=== PATIENT | female | born 2000 | race African-American/Black ===

== ENCOUNTER 2023-03-23 09:54 | Outpatient (CLI) | payer MEDICAID, SELFPAY | END 2023-03-23 09:55 | disposition home or self-care (01) | PROVIDERS: Visit Provider Emergency Medicine Emergency Medical Services | DX: O09.899 Supervision of other high risk pregnancies, unspecified trimester (principal); F11.10 Opioid abuse, uncomplicated | CPT/HCPCS: A0425; A0429 ==

== ENCOUNTER 2023-03-23 10:14 | Emergency (ER) | payer MEDICAID, SELFPAY ==
[2023-03-23] VITALS (16 sets, daily range): BP systolic 125–157; BP diastolic 82–112; PULSE 105–125; RESP 18–22; TEMP 37.6–38.3; O2SAT 89–98; BMI 26.3
--- NOTE | 2023-03-23 11:47 | ED.NURSE ---
at 1130, pt c/o of SOB, 02 sats 92-93% on room air. Educated pt reposition. Pt placed on 2L NC for comfort. is aware.
[2023-03-23 12:01] LABS: PCR FLU A POSITIVE PCR FLU A (Negative); PCR FLU B Negative PCR FLU B (Negative); PCR RSV Negative PCR RSV (Negative)
[2023-03-23 12:03] LABS: SARS PCR* Negative SARS-CoV-2 (Negative)
[2023-03-23 12:18] LABS: Appearance Urine Cloudy (Clear); Bilirubin Urine Negative (Negative); Blood Urine Negative (Negative); Color Urine Yellow (Yellow); Glucose Urine Negative (Negative); Ketones Urine Trace (Negative); Leukocyte Esterase Urine Negative (Negative); Nitrite Urine Negative (Negative); Protein Urine Negative (Negative); Specific Gravity Urine 1.015 (1.000-1.030)
[2023-03-23 12:20] LABS: Lactate* 1.6 mmol/L (0.5-1.9)
[2023-03-23 12:25] LABS: Basophils Absolute Auto 0.01 K/uL (0.00-0.30); Basophils Percent Auto 0.1 % (0.0-3.0); Hematocrit 36.8 % (33.0-51.0); Hemoglobin* 11.8 gm/dL (12.0-16.0); Immature Granulocytes Abs Auto 0.01 K/uL (0.00-0.30); Immature Granulocytes Pct Auto 0.1 %; Lymphocytes Percent Auto 7.7 % (20-44); Mean Corpuscular HGB Conc 32 gm/dL (32-36); Mean Corpuscular Hemoglobin 29 pg (26-34); Mean Corpuscular Volume 91 fL (80-100); Neutrophils Percent Auto 87.1 % (42.0-72.0); Platelet Count* 343 K/uL (140-440); RDW Coefficient of Variation % 11.9 % (11.5-15.5); Red Blood Count 4.03 m/uL (4.00-5.20); White Blood Count* 10.02 K/uL (4.50-11.00)
[2023-03-23 12:29] LABS: Slide Review Reflex No
[2023-03-23 12:31] LABS: RBC Urine 0-2 (0-2)
[2023-03-23 12:32] LABS: Bacteria Urine Many; Squamous Epithelial Cell Urine Moderate (None-Few)
[2023-03-23 12:36] LABS: Albumin* 3.7 g/dL (3.3-5.0); Chloride* 104 mmol/L (96-114)
[2023-03-23 12:37] LABS: Potassium* 3.5 mmol/L (3.6-5.1); Sodium* 133 mmol/L (135-149)
[2023-03-23 12:39] LABS: Creatinine* 0.4 mg/dL (0.5-1.5); Est. Creatinine Clearance* 201.88; Estimated Glomerular Filt Rate 142 ml/min
[2023-03-23 12:40] LABS: Alanine Aminotransferase* 19 U/L (4-35); Alkaline Phosphatase* 161 U/L (40-150); Anion Gap 9 mEq/L (7-15); Aspartate Amino Transferase* 23 U/L (12-35); Bilirubin Direct* 0.1 mg/dL (0.0-0.5); Bilirubin Total* 0.4 mg/dL (0.1-1.5); Blood Urea Nitrogen* 4 mg/dL (5-24); Calcium* 8.5 mg/dL (8.4-10.6); Carbon Dioxide* 20 mmol/L (20-32); Glucose* 113 mg/dL (60-115)
[2023-03-23 12:42] LABS: C Reactive Protein* 5.6 mg/dL (0.5-1.0); Ethanol* < 0.01 % (0.01-0.03)
--- NOTE | 2023-03-23 12:47 | ED.GENADULT ---
HPI - General Adult General Chief complaint: Alcohol/Intoxication Stated complaint: Mental Health Time Seen by Provider: 03/23/23 10:33 History of Present Illness HPI narrative: This 22-year-old female is brought in by police and the [facility] social worker aide who state that she is in her 3rd trimester and is addicted to fentanyl, methamphetamines, and marijuana. The patient is not wanting to be here and yet is cooperative and pleasant. She is approximately 32 weeks gestation. She arrives here with mild tachycardia and does have a fever. She does report a cough and she is indicating some pain in her lower abdomen. Related Data Home Medications Medication Instructions Recorded Confirmed No Known Home Medications 03/23/23 03/23/23 Allergies Allergy/AdvReac Type Severity Reaction Status Date / Time No Known Drug Allergies Allergy Verified 03/23/23 10:50 Review of Systems Status of ROS: Reports: 10 or more systems reviewed and unremarkable except as noted in History and below Narrative: Constitutional: No weight gain or loss. Eyes: No discharge. No vision changes. HENT: No congestion, no sore throat, no ear pain. Cardiovascular: No chest pain, no palpitations. Respiratory: No shortness of breath, no wheezes, no cough. Gastrointestinal: No vomiting, no diarrhea. Thirty-three weeks with lower abdominal pain. Genitourinary: No dysuria, no hematuria. Musculoskeletal: Normal range of motion. Skin: No rashes, no pruritis. Neurological: No dizziness, weakness, sensory change, speech change. Endo/Heme/Allergies: No bruising or bleeding. No polydipsia. Pysch: no suicidality. Dependence on opiates and methamphetamines. All other systems reviewed and are negative. [facility] Social History Do you use any of these nicotine containing products: E-Cigarettes Exam Narrative: Exam Narrative: Constitutional: Well-developed, well-nourished, no acute distress. HEENT: Normocephalic, atraumatic. Neck: Normal range of motion. Nontender. Supple. Heart: Regular. No murmurs. Normal rate. Intact distal pulses. Lungs: Clear to auscultation. No chest discomfort. No wheezes, rhonchi, or rales. Abdomen: Normal bowel sounds. Gravid at 33 weeks gestation. Lower abdominal tenderness. Genitalia: Deferred. Back: No midline tenderness. Normal range of motion. Extremities: Normal range of motion. No injury. Skin: Intact. No rash. Warm. No erythema or pallor. Neurologic: No altered sensation. No weakness. Alert and oriented. Psychiatric: No suicidality. Dependence on opiates and methamphetamines. Nursing notes and vitals signs are reviewed. Const: Vital Signs, click to edit/add: Vital Signs - 24 hr 03/23/23 10:38 03/23/23 11:25 03/23/23 11:28 Temperature 100.9 F H Pulse Rate 118 H Pulse Rate [Right Pulse Oximeter] 109 H Respiratory Rate 18 22 Blood Pressure [Ri ght Upper Arm] 125/82 Pulse Oximetry 92 91 93 Oxygen Delivery Me thod Room Air Room Air 03/23/23 11:30 03/23/23 11:49 03/23/23 12:11 Temperature 99.6 F Pulse Rate 112 H 105 H Pulse Rate [Right Pulse Oximeter] Respiratory Rate 20 Blood Pressure [Ri ght Upper Arm] Pulse Oximetry 95 98 Oxygen Delivery Me thod 03/23/23 12:15 Temperature Pulse Rate 109 H Pulse Rate [Right Pulse Oximeter] Respiratory Rate Blood Pressure [Ri ght Upper Arm] Pulse Oximetry 97 Oxygen Delivery Me thod Course Vital Signs Vital signs: Initial Vital Signs Temperature 100.9 F H 03/23/23 10:38 Temperature Source Temporal Artery Scan 03/23/23 10:38 Pulse Rate 109 H 03/23/23 10:38 Respiratory Rate 18 03/23/23 10:38 Blood Pressure 125/82 03/23/23 10:38 Blood Pressure Mean 96 03/23/23 10:38 Blood Pressure Position Sitting 03/23/23 10:38 Pulse Oximetry 92 03/23/23 10:38 Oxygen Delivery Method Room Air 03/23/23 10:38 Vital Signs Temperature 100.9 F H 03/23/23 10:38 Pulse Rate 109 H 03/23/23 10:38 Respiratory Rate 18 03/23/23 10:38 Blood Pressure 125/82 03/23/23 10:38 Pulse Oximetry 92 03/23/23 10:38 Oxygen Delivery Method Room Air 03/23/23 10:38 Temperature 99.6 F 03/23/23 11:49 Pulse Rate 109 H 03/23/23 12:15 Respiratory Rate 20 03/23/23 11:49 Blood Pressure 125/82 03/23/23 10:38 Pulse Oximetry 97 03/23/23 12:15 Oxygen Delivery Method Room Air 03/23/23 11:28 Medical Decision Making MDM Narrative Medical decision making narrative: This patient comes in by escort from police and social worker aide from the [facility] stating that she is in the process of being committed because of opiate and methamphetamine use during her . The patient is pleasant and cooperative but prefers not to be here when and would rather be discharged. This patient needs services that are not available here so I began to arrange for transport elsewhere. I did speak with [facility] who agrees to her transfer there. Dr. Barber is the accepting physician there. Meanwhile she does arrive with a fever so labs are acquired. A nasal pharyngeal swab does return positive for influenza. The patient was assessed by me with transabdominal ultrasound showing normal activity and heart rate. Additionally the OB department came here to evaluate the patient. There was some suspicion that the patient may be in labor but was determined by Dr. Rivas to not be in labor and is okay for transport. The patient became very anxious and short of breath and did respond to oxygen. She was likely exhibiting signs of withdrawal from opiates. She did eventually agree to placing another IV as the 1st attempt was unsuccessful. She agree to an IV dose of an opiate to help with her withdrawal symptoms. Dilaudid 0.5 mg was given. Respiratory therapy came also to evaluate the patient and after giving oxygen by non-rebreather mask the patient seemed to be improved and did not need nebulizer or steroid treatments. This patient is okay for transport. Lab Data Labs: Lab Results 03/23/23 03/23/23 03/23/23 Range/Units 11:05 12:05 12:10 WBC 10.02 (4.50-11.00) K/uL RBC 4.03 (4.00-5.20) m/uL Hgb 11.8 L (12.0-16.0) gm/dL Hct 36.8 (33.0-51.0) % MCV 91 (80-100) fL MCH 29 (26-34) pg MCHC 32 (32-36) gm/dL RDW Coeff of Elijah 11.9 (11.5-15.5) % Plt Count 343 (140-440) K/uL Neut % (Auto) 87.1 H (42.0-72.0) % Lymph % (Auto) 7.7 L (20-44) % [place] % (Auto) 5.0 (0.0-11.0) % Eos % (Auto) 0.0 (0.0-7.0) % Baso % (Auto) 0.1 (0.0-3.0) % Neut # (Auto) 8.70 H (1.7-7.0) K/uL Lymph # (Auto) 0.80 L (0.90-2.90) K/uL [place] # (Auto) 0.50 (0.00-0.90) K/UL Eos # (Auto) 0.00 (0.00-0.50) K/uL Baso # (Auto) 0.01 (0.00-0.30) K/uL Abs Immat Gran (auto) 0.01 (0.00-0.30) K/uL Imm/Tot Granulo (auto) 0.1 % Sodium 133 L (135-149) mmol/L Potassium 3.5 L (3.6-5.1) mmol/L Chloride 104 (96-114) mmol/L Carbon Dioxide 20 (20-32) mmol/L Anion Gap 9 (7-15) mEq/L BUN 4 L (5-24) mg/dL Creatinine 0.4 L (0.5-1.5) mg/dL Estimated Creat Clear 201.88 Estimated GFR 142 ml/min Glucose 113 (60-115) mg/dL Lactate 1.6 (0.5-1.9) mmol/L Calcium 8.5 (8.4-10.6) mg/dL Total Bilirubin 0.4 (0.1-1.5) mg/dL Direct Bilirubin 0.1 (0.0-0.5) mg/dL AST 23 (12-35) U/L ALT 19 (4-35) U/L Alkaline Phosphatase 161 H (40-150) U/L Total Protein 7.0 (6.0-8.3) g/dL Albumin 3.7 (3.3-5.0) g/dL Urine Color Yellow (Yellow) Urine Appearance Cloudy A (Clear) Urine pH 7.0 (5.0-8.5) Ur Specific [place] 1.015 (1.000-1.030) Urine Protein Negative (Negative) Urine Glucose (UA) Negative (Negative) Urine Ketones Trace A (Negative) Urine Blood Negative (Negative) Urine Nitrite Negative (Negative) Urine Bilirubin Negative (Negative) Urine Urobilinogen 1.0 (0.2-1.0) Ur Leukocyte Esterase Negative (Negative) Urine RBC 0-2 (0-2) Urine WBC 2-5 (0-5) Ur Squamous Epith Cells Moderate A (None-Few) Urine Bacteria Many A (None) Ethyl Alcohol < 0.01 L (0.01-0.03) % SARS-CoV-2 (PCR) Negative SARS-CoV-2 (Negative) Influenza Type A (PCR) POSITIVE PCR FLU A A (Negative) Influenza Type B (PCR) Negative PCR FLU B (Negative) RSV (PCR) Negative PCR RSV (Negative) Critical Care Time Critical Care Time Total Critical Care Time in Minutes: 45 Discharge Plan Discharge Clinical Impression: Opiate dependence, , Methamphetamine abuse, Influenza Patient Disposition: [facility] Condition: Unchanged Prescriptions: No Action No Known Home Medications Stand Alone Forms: MyHealth Info Instructions
--- NOTE | 2023-03-23 12:50 | ED.NURSE ---
Patient and significant other, Lm, were read 72-hour hold rights at 1100.
--- NOTE | 2023-03-23 13:27 | ED.NURSE ---
Pt c/o of intermittent abdominal pain- MD aware. No new orders placed. Bedside ultrasound completed by MD at bedside. Pt c/o of SOB at 1315- Currently has 2L NC in place and oxygen saturations adequate see flowsheets.ER and OB MD at bedside at 1330 to assess pt.
--- NOTE | 2023-03-23 13:28 | RESP.RT ---
Pt placed on oxymask at 6L, to maintain an SPO2 of 95%.
[2023-03-23] MEDS: HYDROmorphone 0.5 mg/0.5 ml inj IVP (13:52)
--- NOTE | 2023-03-23 13:55 | ED.NURSE ---
. Patent 20g IV inserted in right AC. x1 dose IVP of Dilaudid given for abdominal pain per pt report. EMS here to take pt to [place] at 1400. EMS given report
--- NOTE | 2023-03-23 14:05 | ED.NURSE ---
EMS given x1 bag of belongings (jacket, pants and shoes). Pt has phone 2 with her as well.
--- NOTE | 2023-03-23 14:11 | ED.NURSE ---
Pt received 1/3 of IV bolus of NS prior to left 22g placed by OB- infiltrated at 1300. After pt refused IV insertion and refused intervetions 1355 pt allowed ED RN to place right 20g in AC
--- NOTE | 2023-03-23 14:31 | ED.NURSE ---
development writer gave report to mg cristobal at [place]
--- NOTE | 2023-03-23 15:39 | PC.OBNST ---
NST Note NST Note Start: 03/23/23 15:34 Freq: ONCE Status: Active Protocol: Document 03/23/23 15:35 JRJolene (Rec: 03/23/23 15:39 JRJolene [id number]) NST Note 2 Para (# of births) 1 EDC 05/11/23 Gestational Age In Weeks & Days 33 Weeks & 0 Days Patient Presented with Complaint(s) of Other Other Complaints Pt on a hold in the ED for drug use. Transferred to [facility]. Dr. Raman reviewed the strip. Reactive No Appropriate for Gestational Age No RAMON Johnson RN Date 03/23/23 Reactive No Appropriate for Gestational Age No RAMON Robison RN Date 03/23/23 OB NST charge Yes Complete NST Note via Write Note Yes The provider's electronic signature indicates the NST is reactive/appropriate for gestational age. *Note to provider: If an addendum is required, open the patient's chart and click on the note under the Nurse/Allied Health tab.
--- NOTE | 2023-03-23 19:21 | ED.NURSE ---
Pt took x3 attempts to get IV placed. OB RN did attempt x1 as well. Pt left with patent iv right 20g
== END 2023-03-23 14:00 | disposition short-term general hospital (02) ==
PROVIDERS: Emergency Provider Emergency Medicine Emergency Medical Services
DX: O99.323 Drug use complicating pregnancy, third trimester (principal); J11.1 Influenza due to unidentified influenza virus with other respiratory manifestations; F11.20 Opioid dependence, uncomplicated; F15.90 Other stimulant use, unspecified, uncomplicated; Z3A.32 32 weeks gestation of pregnancy
CPT/HCPCS: 36415; 59025; 76815; 80048; 80076; 81001; 82077; 83605; 85025; 86140; 87040; 87086; 87631; 96374; 99285; 99291; A9270; J1170

== ENCOUNTER 2023-03-23 13:45 | Outpatient (CLI) | payer MEDICAID, SELFPAY | END 2023-03-23 13:46 | disposition home or self-care (01) | PROVIDERS: Visit Provider Emergency Medicine Emergency Medical Services | DX: O26.893 Other specified pregnancy related conditions, third trimester (principal); F11.20 Opioid dependence, uncomplicated; Z3A.33 33 weeks gestation of pregnancy | CPT/HCPCS: A0425; A0428 ==

== ENCOUNTER 2024-07-13 15:41 | Outpatient (CLI) | payer MEDICAID, SELFPAY | END 2024-07-13 15:42 | disposition home or self-care (01) | PROVIDERS: Visit Provider Obstetrics & Gynecology | DX: O99.013 Anemia complicating pregnancy, third trimester (principal); D64.9 Anemia, unspecified; Z3A.31 31 weeks gestation of pregnancy | CPT/HCPCS: 83021 ==

== ENCOUNTER 2024-07-19 08:19 | Outpatient (CLI) | payer MEDICAID, SELFPAY | END 2024-07-19 08:20 | disposition home or self-care (01) | LOC: NFLDREF 08:20 | PROVIDERS: Visit Provider Obstetrics & Gynecology | DX: Z34.93 Encounter for supervision of normal pregnancy, unspecified, third trimester (principal); Z3A.28 28 weeks gestation of pregnancy | CPT/HCPCS: 86592; 86706 ==

== ENCOUNTER 2024-08-14 12:26 | Outpatient (CLI) | payer BC, SELFPAY ==
[2024-08-15 09:05] LABS: Strep B DNA Probe Negative (Negative)
[2024-08-15 09:11] LABS: Strep B Susceptibility Needed? No
== END 2024-08-14 12:27 | disposition home or self-care (01) ==
LOC: NFLDREF 12:26
PROVIDERS: Visit Provider Obstetrics & Gynecology
DX: Z34.83 Encounter for supervision of other normal pregnancy, third trimester (principal)
CPT/HCPCS: 82728; 87081; 87653

== ENCOUNTER 2024-08-22 14:50 | Outpatient (CLI) | payer BC, SELFPAY ==
--- NOTE | 2024-08-22 14:45 | CRLHL7_ITS ---
For Patients: As a result of the Century Cures Act, medical imaging exams and procedure reports are released immediately into your electronic medical record. You may view this report before your referring provider. If you have questions, please contact your health care provider. GEOVANY by US: 09/14/2024. GA: 36w, 5d. Single. INDICATION: Drug use complicating . CERVIX: Not visualized. POSITIONING: Vertex. AMNIOTIC FLUID: 6.8 cm SDP. BIOPHYSICAL PROFILE: Total score: 6. Gross body movements: 2. tone: 2. Respiratory activity: 0. Amniotic fluid: 2. (SDP N: Increase 2 x 1 cm) PLACENTA: Technique: Transabdominal. PLACENTA POSITION: Fundal left wall. DOPPLER: heart rate: 139 bpm. Biometry: BPD: 8.6 cm. 34w, 4d, 11.3 percent. HC: 32.3 cm. 36w, 3d, 18.3 percent. AC: 32.8 cm. 36w, 5d, 62.9 percent. FL: 7.0 cm. 35w, 6d, 24.8 percent. FL/AC ratio: 21.28 percent. HC/AC ratio: 0.98. EFW: 2881 g. Weight: 6 lbs, 6 oz. age by this US: 35w, 6d. GEOVANY by this US: 09/20/2024. Percentile by GEOVANY: 41 percent. IMPRESSION: 1. Sonographic gestational age 35 weeks 6 days and sonographic due date 09/20/2024. Sonographic age is 6 days behind the clinical age. 2. Estimated weight 41st percentile. Abdominal circumference 63rd percentile. 3. Biophysical profile 09/17. Absent respiratory activity. Bryn Carpio M.D. Diagnostic Radiologist [email or web address] LUKAS/delma / bM/Dictated by: Bryn Carpio MD @ 08/22/2024 4:19:00 PM (Electronically Signed)
== END 2024-08-22 14:51 | disposition home or self-care (01) ==
LOC: US 14:50
PROVIDERS: Visit Provider Obstetrics & Gynecology
DX: O99.323 Drug use complicating pregnancy, third trimester (principal); F11.20 Opioid dependence, uncomplicated; O36.5930 Maternal care for other known or suspected poor fetal growth, third trimester, not applicable or unspecified; Z3A.36 36 weeks gestation of pregnancy
CPT/HCPCS: 76816; 76819

== ENCOUNTER 2024-08-24 09:29 | Outpatient (RCR) | payer BC, SELFPAY ==
--- NOTE | 2024-08-17 11:21 | ONC.NURNOTE ---
Diagnosis: BRAD in
[2024-08-24 09:38] VITALS: BP 115/76; PULSE 89; RESP 16; TEMP 36.3; O2SAT 95
[2024-08-24] MEDS: SODIUM CHLORIDE 0.9 % (FLUSH) 10 ML SYRINGE IVF (10:19)
[2024-08-24] MEDS: IRON DEXTRAN COMPLEX 25 MG in 0.9 % SODIUM CHLORIDE 100 ml 100 ML 402 MG IVPB (10:19)
[2024-08-24 10:41] VITALS: BP 110/69; PULSE 88; RESP 16; TEMP 36.4; O2SAT 97
[2024-08-24] MEDS: IRON DEXTRAN COMPLEX 975 MG in 0.9 % SODIUM CHLORIDE 250 ml 250 ML 270 MG IVPB (11:38)
[2024-08-24 12:43] VITALS: BP 111/67; PULSE 91; RESP 14; TEMP 36.4; O2SAT 96
== END 2025-02-20 23:59 | disposition home or self-care (01) ==
LOC: CCIC 09:29
PROVIDERS: Referring Provider Obstetrics & Gynecology; Visit Provider Clinical Nurse Specialist
DX: O99.013 Anemia complicating pregnancy, third trimester (principal); D50.9 Iron deficiency anemia, unspecified
CPT/HCPCS: 96365; J1750; J7050

== ENCOUNTER 2024-09-06 15:20 | Outpatient (CLI) | payer BC, SELFPAY | END 2024-09-06 15:21 | disposition home or self-care (01) | LOC: NFLDREF 09-12 07:34 | PROVIDERS: Visit Provider Obstetrics & Gynecology | DX: R30.0 Dysuria (principal); Z11.3 Encounter for screening for infections with a predominantly sexual mode of transmission | CPT/HCPCS: 87086; 87491; 87591 ==

== ENCOUNTER 2024-09-07 05:31 | Inpatient (IN) | payer BC, SELFPAY ==
[2024-09-07] VITALS (31 sets, daily range): BP systolic 97–137; BP diastolic 53–81; PULSE 66–85; RESP 16; TEMP 36.6–37.5; O2SAT 93–99; BMI 36.3
[2024-09-07 06:29] LABS: Basophils Absolute Auto 0.02 K/uL (0.00-0.30); Basophils Percent Auto 0.3 % (0.0-3.0); Eosinophils Absolute Auto 0.06 K/uL (0.00-0.50); Hematocrit 30.8 % (33.0-51.0); Hemoglobin* 9.7 gm/dL (12.0-16.0); Immature Granulocytes Abs Auto 0.02 K/uL (0.00-0.30); Immature Granulocytes Pct Auto 0.3 %; Lymphocytes Absolute Auto 1.38 K/uL (0.90-2.90); Lymphocytes Percent Auto 22.5 % (20-44); Mean Corpuscular HGB Conc 32 gm/dL (32-36); Mean Corpuscular Hemoglobin 29 pg (26-34); Mean Corpuscular Volume 93 fL (80-100); Monocytes Percent Auto 12.9 % (0.0-11.0); Neutrophils Absolute Auto 3.85 K/uL (1.7-7.0); Platelet Count* 288 K/uL (140-440); RDW Coefficient of Variation % 15.2 % (11.5-15.5); Red Blood Count 3.33 m/uL (4.00-5.20); White Blood Count* 6.12 K/uL (4.50-11.00)
[2024-09-07 06:35] LABS: Slide Review Reflex No
[2024-09-07] MEDS: LACTATED RINGERS 1000 ML 1,000 ML 1200 ML IV (06:39)
--- NOTE | 2024-09-07 07:18 | W.PM.H&PU ---
History & Physical Update History & Physical Update H&P Updates: Hgb today 9.7 after iron infusion x3. Will speak to Susana Prado to discuss plan for suboxone and postop pain management.
--- NOTE | 2024-09-07 07:20 | P.PCN_ITS ---
Procedure Note Time Seen by Provider: 09:00 Date Seen: 09/07/24 Date of procedure: 09/07/24 Will [facility] bill your pro fee for this procedure?: Yes Procedure: Preoperative diagnosis: 23-year-old 3 para 2003 (one set of twins) at 39 and 0/7 weeks admitted for a scheduled repeat low transverse section. Postoperative diagnosis: Same Procedure: Repeat low-transverse section. TAPS block. Anesthesia: Spinal Surgeon: Sarah Kimbrough MD Waterworks Operator: ANDRADE Art Quantitative blood loss: 697 mL IV Fluid: 2000 mL Urine output: 200 mL, clear urine at the end of the procedure Drain(s): Polanco to gravity. Specimen: A portion of umbilical cord was sent for toxicology testing. Findings: A live female was delivered from the direct OA position at 8:03 a.m.. Apgars were 8 at 1 min and 9 at 5 min, respectively. Infant weight: 7 lb 11 oz, 3480 g. Nuchal cord(s): No. The placenta was delivered spontaneously and complete at 8:06 a.m. Amniotic fluid: Clear. Normal uterus, fallopian tubes and ovaries were noted. Other findings: Thick adhesions of the rectus abdominus muscles in the midline and thick adhesions of the fascia to the rectus muscles. Minimal scarring intra-abdominally. Procedure: Yoselin was taken to the OR where spinal anesthetic was found be adequate. A Polanco catheter was placed. The patient was then placed in the dorsal supine position with a leftward tilt. She was then prepped and draped in a normal sterile manner. A Pfannenstiel skin incision was made and carried through sharply to the underlying layer of fascia. Fascia was incised in the midline a nd this incision carried laterally with Metzger scissors. The superior aspect of fascial incision was grasped with Merly clamps, tented up, and the rectus muscles dissected off with a combination of blunt and sharp dissection. The inferior aspect of the fascial incision was not dissected off the rectus muscles. There was a buttonhole in the fashion noted superiorly on the left side that was reapproximated using 0 Vicryl in a running manner: This opening was approximately 3 cm in length. The rectus muscles were in layers using Metzger scissors. The peritoneum was entered sharply when dissecting the fascia off of the rectus muscles. This opening was extended with a combination of blunt and sharp dissection. An Matt-O self-retaining retractor was placed. A bladder flap was not created. Uterus was incised in a low transverse manner in the midline. This incision carried laterally with blunt pressure on the inferior and superior aspects of the uterine incision. The amniotic sac was ruptured. The infant's head and body were delivered atraumatically. The was shown to the patient and her support person. The umbilical was clamped and cut after a 32nd delay.. The infant was then handed to waiting pediatric and nursing staff. The placenta was delivered spontaneously. The uterus was cleared of clots and debris. The uterine incision was re-approximated with the uterus in vivo. The 1st layer using 0-Vicryl in a running, locked manner. The 2nd layer using 0-Monocryl in a running, vertical, imbricating layer. Additional sutures needed for hemostasis: Yes: 3 sutures of 2-0 chromic figure of 8 manner were placed. The fallopian tubes and ovaries were inspected. Reji was applied to the uterine incision. Excellent hemostasis was confirmed. The Matt retractor was removed. The rectus muscles were reapproximated using 0 Vicryl vertical mattress sutures. The rectus muscles were then closely inspected to verify hemostasis. Hemostasis was obtained with bipolar cautery. The fascia was then reapproximated using 0- Maxon loop in a running manner. The subcutaneous tissue was then irrigated with saline and hemostasis obtained with bipolar cautery. The subcutaneous tissue was reapproximated using 3-0 plain gut interrupted sutures. The skin was reapproximated using 4-0 Monocryl in a running subcuticular manner. Exophin skin adhesive and a Mepiplex dressing were applied. The patient had significant difficulty with pain during the procedure. Anesthesia gave her fentanyl, ketamine and propofol which minimally to moderately controlled her discomfort. Sponge, lap and instrument counts were correct x2 active to the procedure. Patient was taken to the recovery area in stable condition. The patient received 2 g of IV Ancef prior to skin incision. Anesthesia: spinal Surgeon: Sarah Kimbrough MD Waterworks Operator: Amalia Cintron Estimated blood loss (mL): 697 IV fluids (mL): 2,000 Urine output (mL): 200 Pathology: other (umbilical cord for toxicology testing) Condition: stable Disposition: floor
[2024-09-07 07:27] LABS: Amphetamine Screen Urine Negative (Negative); Barbiturate Screen Urine Negative (Negative); Benzodiazepines Screen Urine Negative (Negative); Cannabinoid Screen Urine Negative (Negative); Cocaine Screen Urine Negative (Negative); Methadone Screen Urine Negative (Negative); Methamphetamines Screen Urine Negative (Negative); Opiate Screen Urine Negative (Negative); Oxycodone Screen Urine Negative (Negative); Phencyclidine Screen Urine Negative (Negative); Tricyclic Antidepressant Urine Negative (Negative)
[2024-09-07] MEDS: CEFAZOLIN 1 GM inj 2 GM IVP (07:32)
--- NOTE | 2024-09-07 08:14 | SUR.OPER ---
PATIENT QUESTIONS ANSWERED SATISFACTORILY PREOPERATIVELY. PATIENT BROUGHT TO OR #4 PER AMBULATION WITH THE OB RN. Patient positioned supine on OR #4 bed WITH THE BUMP UNDER HER RIGHT HIP. Perioperative placed arms on the arm boards. ? Final approval of positioning by surgeon.
--- NOTE | 2024-09-07 08:16 | SUR.OPER ---
SURGEON DECLINES AN OFFER TO SEND THE PLACENTA TO PATHOLOGY.
--- NOTE | 2024-09-07 08:21 | P.ANES_ITS ---
Anesthesia Charges Start Date/Time Anesthesia Start Date: 09/07/24 Anesthesia Start Time: 07:22 Stop Date/Time Anesthesia Stop Date: 09/07/24 Anesthesia Stop Time: 09:00 Coding CPT Codes CPT Codes: ANESTH CS DELIVERY - 30904 ([id number]) P3 - PATIENT W/SEVERE SYS DISEASE, QK - GEOGRAPHIC AREA INTELLIGENCE OFFICER 2-4 CNCRNT ANES PROC, QX - ROOM SERVICE ASSOCIATE SVC W/ MD MED DIRECTION
--- NOTE | 2024-09-07 08:21 | W.ANESCHARGE ---
Anesthesia Charges Start Date/Time Anesthesia Start Date: 09/07/24 Anesthesia Start Time: 07:22 Stop Date/Time Anesthesia Stop Date: 09/07/24 Anesthesia Stop Time: 09:00 Coding CPT Codes CPT Codes: ANESTH CS DELIVERY - 27110 ([id number]) P3 - PATIENT W/SEVERE SYS DISEASE, QK - SALVAGE MACHINE OPERATOR 2-4 CNCRNT ANES PROC, QX - TYPESETTING SUPERVISOR SVC W/ MD MED DIRECTION
--- NOTE | 2024-09-07 09:07 | W.PM.NB ---
Nerve Block Nerve Block Time Seen by Provider: 08:42 Date Seen: 09/07/24 Type of block requested by surgeon for post-operative analgesia: TAP Side: bilateral Time out performed: Yes Verification of patient name: Yes Verification of date of : Yes Site marking: site marked Name of person performing procedure: Vincent Continuous monitoring Was continuous monitoring of O2 sat, B/P, cardiac cath lab technologist, recorded every 15 minutes?: Yes Procedure Checklist: sterile prep, needles and gloves Ultrasound guided. Images saved: Yes Medications given in 5ml increments after negative aspiration: Marcaine %: 0.25 mL: 30 Needle gauge: 20 and Exparel mL: 10 Patient tolerated procedure well: Yes Additional comments: Needle noted between internal oblique and transversus abdominus. Local spread visualized Block Charges Block Charge (with Pro Fee): TAP Bilateral Use of Ultrasound Machine for Block: Yes- US Guidance/pain block
--- NOTE | 2024-09-07 09:12 | P.ANES_ITS ---
Anesthesia Charges Start Date/Time Anesthesia Start Date: 09/07/24 Anesthesia Start Time: 07:22 Stop Date/Time Anesthesia Stop Date: 09/07/24 Anesthesia Stop Time: 09:00 Coding CPT Codes CPT Codes: ANESTH CS DELIVERY - 42916 ([id number]) P3 - PATIENT W/SEVERE SYS DISEASE, QK - AIR CONTROL ELECTRONICS OPERATOR 2-4 CNCRNT ANES PROC, QX - AUTOMOTIVE SALES MANAGER SVC W/ MD MED DIRECTION
--- NOTE | 2024-09-07 09:12 | W.ANESCHARGE ---
Anesthesia Charges Start Date/Time Anesthesia Start Date: 09/07/24 Anesthesia Start Time: 07:22 Stop Date/Time Anesthesia Stop Date: 09/07/24 Anesthesia Stop Time: 09:00 Coding CPT Codes CPT Codes: ANESTH CS DELIVERY - 19093 ([id number]) P3 - PATIENT W/SEVERE SYS DISEASE, QK - PRESS LEADER 2-4 CNCRNT ANES PROC, QX - RETAIL AIDE SVC W/ MD MED DIRECTION
[2024-09-07] MEDS: LACTATED RINGERS 1000 ML 1,000 ML 125 ML IV (11:01)
[2024-09-07] MEDS: ACETAMINOPHEN 500 MG TABLET 1000 MG PO ×2 (12:19→18:13)
[2024-09-07] MEDS: SODIUM CHLORIDE 0.9 % (FLUSH) 10 ML SYRINGE IVF (15:15)
[2024-09-07] MEDS: KETOROLAC 30 MG/ML inj IVP ×2 (15:15→21:19)
[2024-09-07] MEDS: OXYCODONE 5 MG TABLET PO (19:42)
[2024-09-08] VITALS (8 sets, daily range): BP systolic 100–112; BP diastolic 57–70; PULSE 74–87; RESP 12–18; TEMP 36.7–37.2; O2SAT 95–97
[2024-09-08] MEDS: ACETAMINOPHEN 500 MG TABLET 1000 MG PO ×4 (00:13→19:43)
[2024-09-08] MEDS: OXYCODONE 5 MG TABLET PO ×2 (00:13→05:43)
[2024-09-08] MEDS: KETOROLAC 30 MG/ML inj IVP ×3 (03:18→15:42)
[2024-09-08 06:32] LABS: Hemoglobin* 9.3 gm/dL (12.0-16.0)
--- NOTE | 2024-09-08 08:23 | PM.OBPNVD1 ---
OB - PN:Subj Subjective Time Seen by Provider: 07:45 Date Seen: 09/08/24 Narrative: Yoselin is a 23yo seen on POD1 from repeat C/S performed at 39 weeks GA. is complicated by history of substance use disorder, opioid use disorder in remission (maintained on Suboxone since March of 2023), limited care, history of x2, anemia. She had an uncomplicated repeat delivery yesterday. Patient notes she is feeling well this morning. She notes she was able to get some rest overnight. She is bonding well with baby girl, breast-feeding at time of our exam. She notes her pain control overall is improving. She describes things as tolerable, rated as a 3/10 while resting and about a 5 or 6 when ambulating. She has been maintained on NSAIDs, Tylenol and oxycodone. With regard oxycodone, she has been taking 10 mg about every 6 hours and again notes this to provide adequate pain control. Patient is maintained on Suboxone 12 mg daily, planned next dose this morning. She has been up and out of bed, notes no dizziness/lightheadedness with ambulation. Tolerating p.o. intake without nausea vomiting. Voiding spontaneously, Polanco out. Denies any bowel concerns, passing small volume flatus. Denies any significant vaginal bleeding. No incision concerns, though still covered at this time. Denies lower extremity pain/erythema/swelling, chest pain or dyspnea. OB - PN: Obj Exam Physical Exam: Vital signs: Temp Pulse Resp BP Pulse Ox O2 Del Method 98.9 F 74 16 111/67 97 Room Air 09/08/24 03:20 09/08/24 03:20 09/08/24 07:10 09/08/24 03:20 09/08/24 03:20 09/08/24 03:20 Narrative: General: Alert and oriented, in no acute distress. Seated upright in baby girl. Psych: Appropriate mood and affect Abdomen: Soft, nondistended. Tender to palpation across the lower quadrant, consistent with postoperative state. No rebound or guarding. Incision is currently covered, dressing is clean/dry. Extremities: No significant peripheral edema. No calf erythema/tenderness. OB - PN: Obj Data Labs Labs: Laboratory Results - last 24 hr 09/08/24 06:07 Hgb 9.3 L OB - PN: A/P Delivery Assessment and Plan (1) Lactating mother: Status: Acute (2) Status post repeat low transverse section: Problem details: Girl at 08:03am, Apgars 8/9, weight 7#11oz. Status: Acute (3) Opioid use disorder in remission: Status: Acute (4) Anemia affecting in third trimester: Status: Acute (5) Previous delivery affecting : Status: Acute (6) Late care affecting in third trimester: Status: Acute (7) History of inadequate care: Status: Acute (8) Suboxone maintenance treatment complicating , antepartum: Status: Acute Plan Yoselin is a 23yo seen on POD1 from repeat C/S performed at 39 weeks GA. is complicated by history of substance use disorder, opioid use disorder in remission (maintained on Suboxone since March of 2023), limited care, history of x2, anemia. Patient is feeling well this morning and meeting appropriate postoperative milestones. With regard to her pain control, she is maintained on Suboxone daily. Her pain overall has been adequately controlled with NSAIDs, Tylenol, oxycodone as needed. Presently, she is taking 10 mg about every 6 hours. I explained that this is very reasonable and I anticipate she may have a higher opioid need given Suboxone use. I am happy to hear that pain overall is tolerable, where if revision of narcotics is required in time (as TAPS block wear off) we could consider increasing the dose if needed, consider more frequent dosing interval or revise to Dilaudid p.o. Recommend scheduled ibuprofen and Tylenol to optimize multimodal pain plan. Recommend abdominal binder further support with transition movements. VS within normal limits. AM hemoglobin is 9.3 from 9.7 pre-op. Benign abdominal exam, patient is meeting all appropriate postoperative milestones in terms of ambulation, p.o. intake, voiding and flatus. She is bonding well with baby girl, breast-feeding. Discussed option for dismissal to home on postoperative day 2-3 depending on how she is feeling. From a pediatrics perspective, they recommend hospitalization through postoperative day 3 given potential opioid withdrawal syndrome - thus I think it is reasonable to plan on the same for Yoselin. Plan Plan: routine care
[2024-09-08] MEDS: DOCUSATE SODIUM 100 MG CAPSULE PO (08:29)
[2024-09-08 15:09] LABS: Rapid Plasma Reagin (RPR) Non Reactive (Non Reactive)
--- NOTE | 2024-09-08 16:35 | PC.SOCIAL ---
Social work: Met briefly with pt and introduced social work and role in Center. Pt shared she has no need for social work resources or information and has no concerns about discharge when ready to leave the hospital. Provided pt with contact information for hospital social work if any concerns or questions arise.
[2024-09-08] MEDS: IBUPROFEN 600 MG TABLET PO (22:35)
[2024-09-09] MEDS: ACETAMINOPHEN 500 MG TABLET 1000 MG PO ×4 (02:15→20:32)
[2024-09-09] MEDS: IBUPROFEN 600 MG TABLET PO ×4 (04:30→22:33)
[2024-09-09 08:03] VITALS: BP 109/65; PULSE 81; RESP 16; TEMP 36.9; O2SAT 96
[2024-09-09] MEDS: DOCUSATE SODIUM 100 MG CAPSULE PO ×2 (08:19→22:33)
--- NOTE | 2024-09-09 10:40 | PM.OBPNVD1 ---
OB - PN:Subj Subjective Time Seen by Provider: 09:15 Date Seen: 09/09/24 Narrative: Yoselin is a 23yo seen on POD2 from repeat C/S performed at 39 weeks GA. is complicated by history of substance use disorder, opioid use disorder in remission (maintained on Suboxone since March of 2023), limited care, history of x2, anemia. She had an uncomplicated repeat delivery yesterday. Overnight patient had no complaints. She reports that this has been the most painful delivery but she does think her pain regimen is adequate and not requesting any changes. . She is tolerating a regular diet. She has passed flatus. She is ambulating without difficulty. Lochia is scant. She is urinating without montanez. Patient denies chest pain, SOB, n/v, headache, RUQ pain, vision changes, dizziness. She has been maintained on NSAIDs, Tylenol and oxycodone 10 mg Q6 hours PRN. Patient is maintained on Suboxone 12 mg daily. She was initially anticipating to be discharged today but is ok with staying if baby has to stay. Report to patient that my understanding is that pediatric team would like to keep baby for 1 more day. She is . Other than some breasts fullness, no other issues with OB - PN: Obj Exam Physical Exam: Vital signs: Temp Pulse Resp BP Pulse Ox O2 Del Method 98.4 F 81 16 109/65 96 Room Air 09/09/24 08:03 09/09/24 08:03 09/09/24 08:03 09/09/24 08:03 09/09/24 08:03 09/09/24 08:03 Narrative: Physical exam: General: No acute distress Psych: Alert and oriented x4, full affect HEENT: Normocephalic, atraumatic Heart: Regular rate and rhythm, no murmur rub or gallop Lungs: Clear to auscultation bilaterally Abdomen: Normoactive bowel sounds, soft, no tenderness, rebound, or guarding Incision(s): Appropriately tender to palpation. Clean, dry, and intact. No erythema, induration, or abnormal discharge/breakdown Skin: No lesions or rashes Lower extremities: No edema or erythema Pelvic exam: Deferred. Report scant bleeding OB - PN: Obj Data Labs Labs: Laboratory Results - last 24 hr 09/07/24 06:20 RPR Screen Non Reactive OB - PN: A/P Delivery Assessment and Plan (1) Lactating mother: Status: Acute (2) Status post repeat low transverse section: Problem details: Girl at 08:03am, Apgars 8/9, weight 7#11oz. Status: Acute (3) Opioid use disorder in remission: Status: Acute Assessment and Plan: on Suboxone 12 mg daily (4) History of inadequate care: Status: Acute Plan Postoperative care: - Diet: Advance as tolerated - Fluid: Encourage oral intake - Activity: Encourage ambulation - Pain: Acetaminophen, Ibuprofen, and oxycodone - DVT prophylaxis: SCDs and TEDs when not ambulating. Discharge Planning - Follow up in 5-7 days for incision check in clinic - Follow Up: follow-up at 2 weeks and 6 weeks in clinic Dispo: Patient is POD#2. Need the following milestones: none. Anticipate discharge POD#3 due to baby's discharge status.
[2024-09-09 17:04] VITALS: BP 123/76; PULSE 91; RESP 16; TEMP 36.7; O2SAT 95
[2024-09-10 00:12] VITALS: BP 113/65; PULSE 95; RESP 20; TEMP 36.6; O2SAT 96
[2024-09-10] MEDS: ACETAMINOPHEN 500 MG TABLET 1000 MG PO ×2 (02:24→08:34)
[2024-09-10] MEDS: IBUPROFEN 600 MG TABLET PO ×2 (04:30→10:34)
[2024-09-10] MEDS: DOCUSATE SODIUM 100 MG CAPSULE PO (08:34)
[2024-09-10 09:00] VITALS: BP 108/70; PULSE 85; RESP 16; TEMP 36.7; O2SAT 95
--- NOTE | 2024-09-10 12:04 | PM.OBDSVD1 ---
DS: Providers Provider Time Seen by Provider: 12:00 Date Seen: 09/10/24 Date of admission: 09/07/24 05:31 Primary care physician: Not a Local Provider Admitting Clinician: Sarah Kimbrough MD Consults: 09/07/24 06:47 Consult to Appliance Adjuster [CONS] Routine Comment: Reason for Consult:: Substance Abuse Screening Attending Physician on discharge: Sarah Kimbrough MD Date of Discharge: 09/10/24 DS: Diagnosis Discharge Diagnosis (1) Lactating mother: Status: Acute (2) Status post repeat low transverse section: Status: Acute Problem details: Girl at 08:03am, Apgars 8/9, weight 7#11oz. (3) Opioid use disorder in remission: Status: Acute Exam Narrative: Exam Narrative: General: No acute distress Psych: Alert and oriented x4, full affect HEENT: Normocephalic, atraumatic Heart: Regular rate and rhythm, no murmur rub or gallop Lungs: Clear to auscultation bilaterally Abdomen: Normoactive bowel sounds, soft, no tenderness, rebound, or guarding Incision(s): Appropriately tender to palpation. Clean, dry, and intact. No erythema, induration, or abnormal discharge/breakdown Skin: No lesions or rashes Lower extremities: No edema or erythema Pelvic exam: scant bleeding on pad Const: Vital Signs, click to edit/add: Vital Signs - 24 hr 09/09/24 17:04 09/10/24 00:12 09/10/24 09:00 Temperature 98.0 F 97.8 F 98.0 F Pulse Rate [Pulse Oximeter] 91 95 85 Respiratory Rate 16 20 16 Blood Pressure [Ri ght Arm] 123/76 113/65 108/70 Pulse Oximetry 95 96 95 Oxygen Delivery Me thod Room Air Room Air Room Air OB - DS: Summary Hospital Course Hospital Course: The patient is a 23 year old at 39 weeks gestation that was admitted to the Center on 09/07/24 for scheduled repeat delivery. She had an uncomplicated delivery. She delivered a viable male/female infant. She is . the patient has done well. Overnight patient had no new complaints. Her pain is present but improving. She is tolerating a regular diet. She has passed flatus. She is ambulating without difficulty. Lochia is scant. She is urinating without montanez. Patient denies chest pain, SOB, n/v, headache, RUQ pain, vision changes, dizziness. She has been maintained on NSAIDs, Tylenol and oxycodone 10 mg Q6 hours PRN. Did not need any oxycodone last night. She is taking Suboxone 12 mg daily. Will discharge her on the same pain regimen. Anticipatory guidance given Peripartum Data Procedures: Procedures Operation Date: 09/07/24 07:15 Actual Procedure Side Surgeon p Repeat Section Sarah Kimbrough MD Gender: Female Time Spent with Patient Time attestation: Total time spent providing and/or coordinating discharge services: Discharge Plan Discharge Disposition: Home, Self-Care Date of Admission: 09/07/24 05:31 Attending Provider on Discharge: Casi Melendrez Primary Care Provider: Provider,Not a Local Condition: Stable Anticipated Discharge Date/Time: 09/10/24 11:54 Discharge Medications: New acetaminophen 500 mg Tablet 1,000 mg PO Q6H 30 Days Qty: 240 0RF docusate sodium 100 mg Capsule 100 mg PO BID Qty: 60 0RF ibuprofen 600 mg Tablet 600 mg PO Q6H 30 Days Qty: 120 0RF Lanolin (HPA) 100 % Cream 1 applic topical Q1H PRNQty: 21 0RF oxycodone 5 mg Tablet 5 mg PO Q6H PRN (Reason: Pain) 14 Days Qty: 10 0RF ferrous sulfate 325 mg (65 mg iron) tablet 325 mg PO QMWF Qty: 30 0RF Continued Vitamin Plus Low Iron 27 mg iron- 1 mg tablet 1 tab PO DAILY buprenorphine-naloxone [Suboxone] 12-3 mg film 1 film sublingual DAILY Discharge Orders: Discharge Order (Routine); Ordered 09/10/24 Ordered By: Casi Melendrez Patient Education: (DC), OB /Breast Feeding Additional Instructions: Call clinic to make 2 week incision/mood check and 6 week annual exam follow up. You can reach the clinic at [phone] Follow Up Appointments: Provider,Not a Local [Primary Care Provider, Family Practice] Forms: [facility] Info Instructions Discharge Comments: F/u in 2 weeks and 6 weeks
== END 2024-09-10 12:58 | disposition home or self-care (01) | DRG 540 ==
PROVIDERS: Admitting Provider Obstetrics & Gynecology; Visit Provider Obstetrics & Gynecology
PROC: 10D00Z1 Extraction of Products of Conception, Low, Open Approach (ICD-10-PCS; CPT 59514; principal; 2024-09-07 07:15)
DX: O34.211 Maternal care for low transverse scar from previous cesarean delivery (principal); G89.18 Other acute postprocedural pain; O99.324 Drug use complicating childbirth; F11.21 Opioid dependence, in remission; Z79.891 Long term (current) use of opiate analgesic; O99.02 Anemia complicating childbirth; D64.9 Anemia, unspecified; Z37.0 Single live birth; Z3A.39 39 weeks gestation of pregnancy
CPT/HCPCS: 01961; 36415; 64488; 76942; 80306; 81003; 85018; 85025; 86592; 86850; 86900; 86901; A4314; A9270; J0665; J0666; J0690; J1100; J1171; J1885; J2250; J2274; J2371; J2405; J2590; J2704; J3490; J7120